=== PATIENT | female | born 1950 | race Caucasian/White ===

== ENCOUNTER → 2023-10-09 06:24 | Day surgery (SDC) | payer MEDICARE, SELFPAY | LOC: GI 06:24 | PROVIDERS: ATTENDING PHYSICIAN Internal Medicine | DX: Z12.11 Encounter for screening for malignant neoplasm of colon (principal); K64.9 Unspecified hemorrhoids; K57.30 Diverticulosis of large intestine without perforation or abscess without bleeding | CPT/HCPCS: G0105 ==

== ENCOUNTER 2024-09-21 11:22 | Emergency (ER) | payer MEDICARE, SELFPAY ==
[2024-09-21 11:31] VITALS: BP 145/92
[2024-09-21 11:56] LABS: % Basophils 0.4 % (0-2); % Eosinophils 2.8 % (0-6); % Immature Granulocytes 0.2 % (0-0.5); % Lymphocytes 24.1 % (20.5-51.1); % Monocytes 8.8 % (1.7-9.3); % Neutrophils 63.7 % (42.2-75.2); Absolute Eosinophils 0.2 10^3/uL (0-0.7); Absolute Monocytes 0.7 10^3/uL (0.1-0.6); Absolute Neutrophils 5.2 10^3/uL (1.4-6.5); Hematocrit 39.1 % (37.0-47.0); Mean Corp Hgb Conc. 33.2 g/dL (33.0-37.0); Mean Corpuscular Volume 93.3 fL (81.0-99.0); Mean Platelet Volume 10.6 fL (7.4-10.4); Nucleated Red Blood Cells % 0 %; Platelet Count 263 10^3/uL (130-400); Red Blood Cell Count 4.19 10^6/uL (4.20-5.40); Red Cell Dist. Width 12.7 % (11.5-14.5); White Blood Cell Count 8.2 10^3/uL (4.8-10.8)
[2024-09-21 12:11] LABS: Troponin I < 0.012 ng/ml
[2024-09-21 12:19] LABS: ALT (SGPT) 18 U/L (0-35); AST (SGOT) 62 U/L (14-36); Albumin 4.1 g/dl (3.5-5.0); Alkaline Phosphatase 65 U/L (38-126); Blood Urea Nitrogen 14 mg/dl (7-17); Calcium 9.6 mg/dl (8.4-10.2); Carbon Dioxide 26 mmol/L (22-30); Chloride 106 mmol/L (98-107); Glucose 95 mg/dl (70-99); Potassium 4.3 mmol/L (3.5-5.1); Sodium 141 mmol/L (135-145); Total Bilirubin 0.7 mg/dl (0.2-1.3); Total Protein 6.5 g/dl (6.3-8.2); eGFR > 60.00
--- NOTE | 2024-09-21 15:18 | ED.GENMED ---
History of Present Illness
General
Chief Complaint: Cardiac Symptoms
Time Seen by Provider: 09/21/24 15:18
History of Present Illness
History of Present Illness:
TIME OF INITIAL ENCOUNTER: 3:20 PM
HPI: At about 9:30 AM today, the patient developed indigestion type of tightness sensation 'in which I wish I could burp' and a general unwell feeling. The symptoms spontaneously improved. She currently has no symptoms. She states she has never
been to a forklift material handler and never had any stress testing. She also reports some unilateral swelling to the left ankle. She has no shortness of breath. There is no pain.
EXAM:
GENERAL: Well appearing in no distress
HEENT: Moist oral mucosa
CARDIOVASCULAR: No murmurs, normal heart rate, regular rhythm, No chest wall tenderness
PULMONARY: No respiratory distress, breath sounds are clear and equal
ABDOMEN: Soft with no peritoneal signs, no tenderness
NEUROLOGIC: Excellent strength all extremities, no coordination deficits
PSYCHIATRIC: Appropriate mental status, normal insight and judgement
EXTREMITIES: Nontender, no edema other than trace edema at the left ankle, moves all extremities equally, strong DP pulses bilaterally
SKIN: No rash, no lesions
NUMBER AND COMPLEXITY OF PROBLEMS ADDRESSED AT THE ENCOUNTER
� Chronic conditions affecting care: Breast cancer, high blood pressure, has had appendectomy
� Acute Exacerbation and/or Progression of Chronic Illness: This is an acute problem
� Differential Diagnosis includes: GERD, gastritis, musculoskeletal chest wall pain, ACS
AMOUNT AND/OR COMPLEXITY OF DATA TO BE REVIEWED AND ANALYZED
� I performed an independent evaluation of and my interpretation is:
EKG: Sinus 64, normal axis, PACs, nonspecific ST abnormality
CT:
X-rays:
Laboratory Studies: White count and hemoglobin are normal, chemistries unremarkable however AST minimally elevated at 62, troponin less than 0.012
Other: Ultrasound imaging shows no DVT of the left lower extremity
� Review of other/old records: I reviewed records, the patient had a colonoscopy in 2023
� Clinical information was obtained by an independent historian: I spoke to friend at bedside, I also spoke to prior to discharge
� Prescriptions/Medications Considered but not given:
� Further testing considered but not performed:
RISK OF COMPLICATIONS AND/OR MORBIDITY OR MORTALITY OF PATIENT MANAGEMENT
� Social determinants of health affecting care: Lives at home
� Discussion with other providers:
� Escalation of care including admission/observation vs risk of discharge considered: The patient has not been having exertional symptoms recently. She had an indigestion type sensation earlier with an initial normal troponin
EKG. Since the symptoms were acute, repeat troponin obtained. Ultrasound also obtained.
ANY OTHER UPDATES:
5:10 PM: Second troponin unchanged. Suspect GI etiology but recommend cardiology follow-up as well. Recommended PPI. No further pain on reassessment. Appears well at time of discharge.
Past History
Past History
ED Past Medical History: None
ED Past Surgical History: None
Phy Exam
Physical Exam
Physical Exam:
See HPI
Course
Orders/Labs/Results
Orders:
Orders
09/21/24 11:22
ECG [Electrocardiogram (*1)] Urgent
Reason for Study: Chest Pain
09/21/24 11:23
EKG- Treatment ONCE
09/21/24 11:39
Complete Blood Count/With Diff Urgent
Comprehensive Metabolic Panel Urgent
Troponin I Urgent
09/21/24 15:42
Troponin I Urgent
09/21/24 15:43
US Periph Venous LOWER Ext LT Urgent
Comment:
Reason For Exam: swelling
Abnormal Lab Results
09/21/24
11:39
RBC 4.19 L 10^6/uL
(4.20-5.40)
MPV 10.6 H fL
(7.4-10.4)
Absolute Monos (auto) 0.7 H 10^3/uL
(0.1-0.6)
AST 62 H U/L
(14-36)
09/21/24 11:39
09/21/24 11:39
Vital Signs
Initial and Last Documented VS:
Initial Vital Signs
Temp Pulse Resp Pulse Ox
36.6 C 62 18 100
09/21/24 11:28 09/21/24 11:28 09/21/24 11:28 09/21/24 11:28
Last Documented Vital Signs
Temp Pulse Resp BP Pulse Ox
36.6 C 80 16 150/82 98
09/21/24 11:28 09/21/24 16:02 09/21/24 16:02 09/21/24 16:02 09/21/24 16:02
*Critical Care Note
Total Time (30-74mins, 75-104mins- exclusive of procedures): Not Applicable
ED Attending Note
-
Portions of this chart may have been created with voice recognition software.� Occasional wrong word or��sound alike� substitutions may have occurred due to the inherent limitations of voice recognition software.
Discharge Plan
Departure
Patient Disposition: Home (Routine Discharge)
Date of Disposition: 09/21/24
Time of Disposition: 17:22
Patient with high blood pressure during this ER visit?: Yes
Discharge Problem:
Chest pain
Instructions: Chest Pain DCA Follow Up, BLOOD PRESSURE
Prescriptions:
No Action
hydroxyzine HCl 25 MG tablet
25 mg PO QIDPRN PRN (Reason: itching) Qty: 20 0RF
mupirocin 1 APPLIC ointment
1 applic topical BID Qty: 1 0RF
Referrals:
UNKNOWN - PT DOES,NOT KNOW [Family Provider] -
Activity Restrictions/Additional Instructions:
I recommended 2-week course of [id number] omeprazole in case her symptoms could be GI related such as reflux. I also recommend that you follow-up with a forklift material handler such as Dr. Trevino. Follow with your primary care doctor as well. Basic
blood work is normal. Ultrasound shows no blood clot. Two blood test looking for signs of heart attack were negative. Return here if worse or other concerns.
Interventions
Interventions:
*Risk Screen - Suicide Last Done: 09/21/24 11:30
*General Assessment Last Done: 09/21/24 11:30
*Neglect/Abuse Screening Last Done: 09/21/24 11:30
*ED- Fall Risk Assessment Last Done: 09/21/24 15:38
*ED COVID-19 Vaccine History Last Done: 09/21/24 11:30
ED- Pulmonary Assessment Last Done: 09/21/24 15:39
ED- Cardiac Assessment Last Done: 09/21/24 15:39
Discharge Date and Time
Print Language: [place]
[2024-09-21 16:02] VITALS: BP 150/82
[2024-09-21 16:18] LABS: Troponin I < 0.012 ng/ml
== END 2024-09-21 17:53 | disposition home or self-care (01) ==
LOC: EMR 11:22
PROVIDERS: Student in an Organized Health Care Education/Training Program; EMERGENCY PHYSICIAN Emergency Medicine
DX: R07.89 Other chest pain (principal); R22.42 Localized swelling, mass and lump, left lower limb
CPT/HCPCS: 99284; 80053; 84484; 85025; 93005; 93971

== ENCOUNTER → 2024-10-15 13:19 | Outpatient (REF) | payer MEDICARE, SELFPAY | LOC: RAD 13:19 | PROVIDERS: ATTENDING PHYSICIAN Physician Assistant Medical | DX: R60.0 Localized edema (principal); I83.893 Varicose veins of bilateral lower extremities with other complications | CPT/HCPCS: 93970 ==

== ENCOUNTER → 2024-10-23 10:56 | Outpatient (REF) | payer MEDICARE, SELFPAY | LOC: HWRCS 10:56 | PROVIDERS: ATTENDING PHYSICIAN Physician Assistant Medical | DX: R60.0 Localized edema (principal); I10 Essential (primary) hypertension; Z85.3 Personal history of malignant neoplasm of breast | CPT/HCPCS: 93306 ==